=== PATIENT | female | born 1960 | race Caucasian/White ===

== ENCOUNTER 2020-07-21 19:46 | Inpatient (IN) | payer MEDICARE, MEDICAID ==
[~2020-07-21] VITALS: Ht 167.6 cm; Wt 63.5 kg
[~2020-07-21 19:46] MED LIST: FAMO20TA8 PO; LACTOBACILLUS PO; ONDA4TAB50 MT; SODI650T PO
[2020-07-21 23:25] LABS: BASOPHILS % 1.1 % (0.0-2.0); EOSINOPHILS % 3.1 % (0.0-5.0); HEMATOCRIT. 23.4 % (36.0-48.0); HEMOGLOBIN. 7.7 g/dL (12.0-16.0); LYMPHOCYTES % 32.9 % (20.0-50.0); MEAN CORPUSCULAR HEMOGLOBIN 27.9 pg (28.0-32.0); MEAN CORPUSCULAR VOLUME 84.5 fL (81.0-99.0); MEAN PLATELET VOLUME 7.8 fl (7.4-10.4); MONOCYTES % 10.2 % (2.0-8.0); NEUTROPHILS % 52.7 % (40.0-76.0); PLATELET 134 x1000/uL (130-400); RED BLOOD CELL COUNT 2.77 mill/uL (4.2-5.4); RED CELL DISTRIBUTION WIDTH 18.3 % (11.6-14.6)
[2020-07-21 23:32] LABS: CHLORIDE 112 mEq/L (98-107)
[2020-07-22 01:16] LABS: INR 1.1; PROTHROMBIN TIME 11.3 sec (9.6-11.0)
[2020-07-22] MEDS ORDERED: ACETAMINOPHEN 325MG TABLET PO PRN (09:00)
[2020-07-22] MEDS ORDERED: ONDANSETRON HCL 4MG/2ML INJ IV PRN (09:00)
[2020-07-22 15:22] VITALS: BP 142/69
[2020-07-22 16:00] VITALS: BP 144/76
[2020-07-22] MEDS ORDERED: HYDROCODONE/ACETAMINOPHEN 5/325MG TABLET PO PRN (18:30)
[2020-07-22] MEDS ORDERED: LACT1POW8 MC (18:31)
[2020-07-22] MEDS: DOCUSATE SODIUM 250MG CAPSULE PO SCH (19:41)
[2020-07-22] MEDS: SEVELAMER CARBONATE 800 MG TABLET PO SCH (19:43)
[2020-07-22 20:37] VITALS: BP 137/58
[2020-07-22 23:49] VITALS: BP 133/67
[2020-07-23 04:00] VITALS: BP 126/58
[2020-07-23 07:06] LABS: BASOPHILS % 1.1 % (0.0-2.0); EOSINOPHILS % 3.2 % (0.0-5.0); HEMATOCRIT. 23.2 % (36.0-48.0); HEMOGLOBIN. 7.8 g/dL (12.0-16.0); LYMPHOCYTES % 34.6 % (20.0-50.0); MEAN CORPUSCULAR HEMOGLOBIN 28.3 pg (28.0-32.0); MEAN CORPUSCULAR VOLUME 84.8 fL (81.0-99.0); MEAN PLATELET VOLUME 7.5 fl (7.4-10.4); MONOCYTES % 10.6 % (2.0-8.0); NEUTROPHILS % 50.5 % (40.0-76.0); PLATELET 119 x1000/uL (130-400); RED BLOOD CELL COUNT 2.74 mill/uL (4.2-5.4); RED CELL DISTRIBUTION WIDTH 18.8 % (11.6-14.6)
[2020-07-23] MEDS ORDERED: AMLODIPINE 10MG TABLET PO SCH (09:00)
[2020-07-23] MEDS ORDERED: FOLIC ACID/VITAMIN B COMP W-C TABLET PO SCH (09:00)
[2020-07-23] MEDS: DOCUSATE SODIUM 250MG CAPSULE PO SCH (10:03)
[2020-07-23] MEDS: SEVELAMER CARBONATE 800 MG TABLET PO SCH ×2 (10:04→13:10)
[2020-07-23 12:00] VITALS: BP 104/65
[2020-07-23] MEDS ORDERED: SEVE800T8 PO (12:36)
[2020-07-23 14:59] VITALS: BP 106/65
[2020-07-23 16:00] VITALS: BP 130/72
== END 2020-07-23 17:40 | disposition home or self-care (01) | DRG 682 ==
LOC: ER 19:46 → 7WST 07-22 00:17
PROVIDERS: ADMIT Internal Medicine; ATTEND Internal Medicine
DX: N17.9 Acute kidney failure, unspecified (principal); E43 Unspecified severe protein-calorie malnutrition; D64.9 Anemia, unspecified; E87.8 Other disorders of electrolyte and fluid balance, not elsewhere classified; Z86.16 Personal history of COVID-19; R74.01 Elevation of levels of liver transaminase levels; I12.9 Hypertensive chronic kidney disease with stage 1 through stage 4 chronic kidney disease, or unspecified chronic kidney disease; Z20.822 Contact with and (suspected) exposure to COVID-19; K59.00 Constipation, unspecified; N18.9 Chronic kidney disease, unspecified; Z91.15 Patient's noncompliance with renal dialysis; Z87.01 Personal history of pneumonia (recurrent); Z68.22 Body mass index [BMI] 22.0-22.9, adult
CPT/HCPCS: 36415; 71045; 76770; 80048; 80053; 82962; 84484; 85025; 86850; 86900; 87635; 93005; 99285